=== PATIENT | female | born 1955 ===

== ENCOUNTER 2020-09-10 08:45 | Inpatient (IN) | payer OTHER ==
[~2020-09-10] VITALS: Ht 160 cm; Wt 72.1 kg
[2020-09-10] MEDS ORDERED: CARVEDILOL12.5 MG (10:43)
[2020-09-10] MEDS ORDERED: CARDURA8 MG PO (10:43)
[2020-09-10] MEDS ORDERED: COZAAR100 MG PO (10:43)
[2020-09-10] MEDS ORDERED: PAXIL20 MG PO (10:44)
[2020-09-10] MEDS ORDERED: CATAPRES0.2 MG PO (10:44)
[2020-09-10] MEDS ORDERED: AVELOX PO (10:45)
[2020-09-10] MEDS ORDERED: PROTONIX40 MG PO (10:45)
[2020-09-17] MEDS ORDERED: MOXIFLOXACIN H400 MG (08:04)
[2020-09-19] MEDS ORDERED: PRILOSEC OTC20 MG PO (10:05)
[2020-09-19] MEDS ORDERED: INTESTINEX680 M1 PO (10:05)
[2020-09-19] MEDS ORDERED: PERCOCET 5-3251 EACH PO (10:05)
== END 2020-09-19 12:07 | disposition home or self-care (01) | DRG 331 ==
LOC: SURH 09-16 08:45 → SURG 09-16 09:28 → O/R 09-16 09:28 → SURH 09-16 10:00 → SURG 09-17 08:07
PROVIDERS: ADMIT Surgery; ATTEND Surgery
PROC: 0DBN4ZZ Excision of Sigmoid Colon, Percutaneous Endoscopic Approach (ICD-10-PCS; 2020-09-16)
PROC: 0DTM4ZZ Resection of Descending Colon, Percutaneous Endoscopic Approach (ICD-10-PCS; principal; 2020-09-16 10:00)
DX: K57.32 Diverticulitis of large intestine without perforation or abscess without bleeding (principal); I11.9 Hypertensive heart disease without heart failure; I34.1 Nonrheumatic mitral (valve) prolapse; F32.9 Major depressive disorder, single episode, unspecified

== ENCOUNTER 2020-10-21 11:00 | Inpatient (IN) | payer OTHER ==
[~2020-10-21] VITALS: Ht 160 cm; Wt 73.5 kg
[~2020-10-21 11:00] MED LIST: AVELOX PO; CARDURA8 MG PO; CARVEDILOL12.5 MG; CATAPRES0.2 MG PO; COZAAR100 MG PO; INTESTINEX680 M1 PO; MOXIFLOXACIN H400 MG; PAXIL20 MG PO; PERCOCET 5-3251 EACH PO; PRILOSEC OTC20 MG PO; PROTONIX40 MG PO
[2020-10-29] MEDS ORDERED: COZAAR100 MG PO (12:25)
[2020-10-29] MEDS ORDERED: CARVEDILOL12.5 MG PO (12:25)
[2020-10-29] MEDS ORDERED: CATAPRES0.2 MG PO (12:25)
[2020-10-29] MEDS ORDERED: INTESTINEX680 M1 PO (12:25)
[2020-10-29] MEDS ORDERED: CARDURA8 MG PO (12:25)
[2020-10-29] MEDS ORDERED: BUSPIRONE HCL5 MG PO (12:25)
[2020-10-29] MEDS ORDERED: PRILOSEC OTC20 MG PO (12:25)
[2020-10-29] MEDS ORDERED: PAXIL20 MG PO (12:25)
== END 2020-10-29 14:34 | disposition home or self-care (01) | DRG 392 ==
LOC: ER 11:00 → SEC-K 13:02 → MEDJ 13:02
PROVIDERS: ADMIT Internal Medicine Geriatric Medicine; ATTEND Internal Medicine Geriatric Medicine
PROC: BW21YZZ Computerized Tomography (CT Scan) of Abdomen and Pelvis using Other Contrast (ICD-10-PCS; principal; 2020-10-27)
DX: K57.32 Diverticulitis of large intestine without perforation or abscess without bleeding (principal); I11.9 Hypertensive heart disease without heart failure; I34.1 Nonrheumatic mitral (valve) prolapse; K52.89 Other specified noninfective gastroenteritis and colitis; F32.89 Other specified depressive episodes

== ENCOUNTER 2022-03-02 05:00 | Day surgery (SDC) | payer OTHER ==
[~2022-03-02 05:00] MED LIST changes: +BUSPIRONE HCL5 MG PO; +CARVEDILOL12.5 MG PO
== END 2022-03-02 11:41 | disposition home or self-care (01) ==
LOC: AMB-ENDOS 05:00
PROVIDERS: ATTEND Surgery
DX: K56.699 Other intestinal obstruction unspecified as to partial versus complete obstruction (principal); K59.09 Other constipation; K57.20 Diverticulitis of large intestine with perforation and abscess without bleeding; K65.1 Peritoneal abscess; Z20.822 Contact with and (suspected) exposure to COVID-19; I10 Essential (primary) hypertension

== ENCOUNTER 2023-02-25 06:00 | Day surgery (SDC) | payer OTHER | END 2023-02-25 11:30 | disposition home or self-care (01) | LOC: AMB-ENDOS 06:00 | PROVIDERS: ATTEND Surgery | DX: K57.20 Diverticulitis of large intestine with perforation and abscess without bleeding (principal); R10.32 Left lower quadrant pain; K57.30 Diverticulosis of large intestine without perforation or abscess without bleeding; K65.1 Peritoneal abscess; Z20.822 Contact with and (suspected) exposure to COVID-19 ==